=== PATIENT | male | born 1985 | race Caucasian/White ===

== ENCOUNTER 2017-03-24 14:54 | Emergency (ER) | payer OTHER ==
[~2017-03-24] VITALS: Ht 170.2 cm; Wt 74.0 kg
[2017-03-24] MEDS ORDERED: GABA-533 PO (15:38)
[2017-03-24] MEDS ORDERED: CARB200T PO (15:38)
[2017-03-24] MEDS ORDERED: POVIDONE-IODINE 10% 15 ML SOLUTION UD ONE (17:55)
[2017-03-24] MEDS ORDERED: POVIDONE-IODINE 10% 15 ML SOLUTION UD TP ONE (18:00)
[2017-03-24 18:03] VITALS: BP 137/91
== END 2017-03-24 18:22 | disposition home or self-care (01) ==
LOC: EMS 14:56
DX: L02.414 Cutaneous abscess of left upper limb (principal)
CPT/HCPCS: 99283

== ENCOUNTER 2019-11-11 20:46 | Inpatient (IN) | payer MEDICARE ==
[~2019-11-11] VITALS: Ht 180.3 cm; Wt 59.4 kg
[~2019-11-11 20:46] MED LIST: CARB200T PO; ESCI10TA PO; GABA-533 PO
[2019-11-11] MEDS ORDERED: HALOPERIDOL 5 MG TABLET PO PRN (23:15)
[2019-11-11] MEDS ORDERED: ZOLPIDEM TARTRATE 10 MG TABLET PO PRN (23:15)
[2019-11-11] MEDS ORDERED: LORazepam 2 MG TABLET PO PRN (23:15)
[2019-11-11] MEDS ORDERED: INFLUENZA VIRUS VACCINE QVS 2019-20 (3YR+)/PF 60 MCG/0.5 ML SYRINGE IM ONE (23:45)
[2019-11-11] MEDS ORDERED: PNEUMOCOCCAL VACCINE POLYVALENT 0.5 ML VIAL [PPSV23] IM ONE (23:45)
[2019-11-12 01:27] VITALS: BP 109/68
[2019-11-12 07:48] LABS: BASOPHILS % (AUTO) 1.5 % (0.0-2.0); EOSINOPHILS % (AUTO) 4.9 % (1.0-6.0); HEMATOCRIT 43.9 % (41-53); LYMPHOCYTES # (AUTO) 3.5 K/uL (1.0-4.8); LYMPHOCYTES % (AUTO) 48.7 % (22.0-44.0); MEAN CORPUSCULAR HGB CONC 34.2 G/dL (31.0-37.0); MEAN CORPUSCULAR VOLUME 91 fL (80-100); MONOCYTES # (AUTO) 0.7 K/uL (0.1-1.0); MONOCYTES % (AUTO) 10.4 % (2.0-9.0); NEUTROPHILS # (AUTO) 2.5 K/uL (1.8-7.7); NEUTROPHILS % (AUTO) 34.5 % (40.0-70.0); PLATELET COUNT (AUTO) 225 K/uL (150-450); RED BLOOD CELL COUNT(AUTO) 4.83 MIL/uL (4.50-5.90); RED CELL DISTRIBUTION WIDTH 12.9 % (11.5-14.5)
[2019-11-12 08:19] LABS: ALANINE AMINOTRANSFERASE 19 U/L (12-78); ALBUMIN 3.4 g/dL (3.4-5.0); ALKALINE PHOSPHATASE 75 U/L (46-116); ANION GAP 5 mmol/L (8-16); ASPARTATE AMINOTRANSFERASE 13 U/L (15-37); BILIRUBIN,TOTAL 0.3 mg/dL (0.1-1.0); CALCIUM, TOTAL 8.9 mg/dL (8.8-10.5); CARBON DIOXIDE 31 mmol/L (22-29); CHLORIDE 103 mmol/L (98-107); CHOL/HDL RATIO 1.7 (4.2-7.3); CHOLESTEROL 120 mg/dL (131-200); CREATININE 0.92 mg/dL (0.60-1.30); FREE T4 (FREE THYROXINE) 0.92 ng/dL (0.76-1.46); GLOMERULAR FILTR. RATE CALC > 60 mL/min (>60); GLUCOSE,RANDOM 94 mg/dL (70-110); HDL CHOLESTEROL 69 mg/dL (40-60); LDL CHOL (CALC.) 41 mg/dL (0-130); POTASSIUM 4.6 mmol/L (3.5-5.1); SODIUM SERUM 139 mmol/L (136-145); THYROID STIMULATING HORMONE 0.22 uIU/mL (0.36-3.74); TOTAL PROTEIN, SERUM 6.1 g/dL (6.4-8.2); TRIGLYCERIDES 50 mg/dL (15-150); UREA NITROGEN, BLOOD 18 mg/dL (7-18)
[2019-11-12 08:39] LABS: HEMOGLOBIN A1C 5.6 % (4.5-6.2)
[2019-11-12 08:44] VITALS: BP 127/89
[2019-11-12] MEDS ORDERED: DESONIDE 0.05% TP PRN (08:45)
[2019-11-12] MEDS: CarBAMazepine 200 MG TABLET PO SCH ×3 (09:10→17:20)
[2019-11-12 16:08] VITALS: BP 125/70
[2019-11-13 04:50] VITALS: BP 111/92
[2019-11-13 08:55] VITALS: BP 124/80
[2019-11-13] MEDS: CarBAMazepine 200 MG TABLET PO SCH ×3 (10:01→16:33)
[2019-11-13] MEDS: ESCITALOPRAM OXALATE 10 MG TABLET PO SCH (10:01)
[2019-11-13 16:34] VITALS: BP 123/73
[2019-11-14 00:19] VITALS: BP 127/69
[2019-11-14 08:12] VITALS: BP 127/88
[2019-11-14] MEDS: ESCITALOPRAM OXALATE 10 MG TABLET PO SCH (10:01)
[2019-11-14] MEDS: CarBAMazepine 200 MG TABLET PO SCH ×3 (10:01→16:39)
[2019-11-14] MEDS ORDERED: IBUPROFEN 600 MG TABLET PO PRN (15:15)
[2019-11-14 16:10] VITALS: BP 117/64
[2019-11-14] MEDS: QUEtiapine FUMARATE 25 MG TABLET PO SCH (20:33)
[2019-11-15 07:22] VITALS: BP 115/69
[2019-11-15 08:24] VITALS: BP 136/73
[2019-11-15] MEDS: ESCITALOPRAM OXALATE 10 MG TABLET PO SCH (08:51)
[2019-11-15] MEDS: CarBAMazepine 200 MG TABLET PO SCH ×3 (08:51→16:14)
[2019-11-15] MEDS: GABAPENTIN 400 MG CAPSULE PO SCH ×2 (12:36→16:14)
[2019-11-15 16:09] VITALS: BP 131/75
[2019-11-15] MEDS: NICOTINE 21 MG/24 HOUR PATCH TD SCH (16:15)
[2019-11-15] MEDS: QUEtiapine FUMARATE 25 MG TABLET PO SCH (20:25)
[2019-11-15] MEDS: CIPROFLOXACIN HCL 0.2%/HYDROCORT 1% 10 ML OTIC SUSPENSION AS SCH (22:09)
[2019-11-16 00:50] VITALS: BP 131/79
[2019-11-16 08:17] VITALS: BP 126/79
[2019-11-16] MEDS: ESCITALOPRAM OXALATE 10 MG TABLET PO SCH (08:27)
[2019-11-16] MEDS: NICOTINE 21 MG/24 HOUR PATCH TD SCH (08:27)
[2019-11-16] MEDS: GABAPENTIN 400 MG CAPSULE PO SCH ×3 (08:27→16:47)
[2019-11-16] MEDS: CarBAMazepine 200 MG TABLET PO SCH ×3 (08:27→16:46)
[2019-11-16] MEDS: CIPROFLOXACIN HCL 0.2%/HYDROCORT 1% 10 ML OTIC SUSPENSION AS SCH ×2 (08:28→16:47)
[2019-11-16] MEDS ORDERED: HYPROMELLOSE 0.5% 15 ML OPHTHALMIC SOLUTION OU PRN (12:45)
[2019-11-16 16:26] VITALS: BP 138/89
[2019-11-16] MEDS: QUEtiapine FUMARATE 25 MG TABLET PO SCH (20:11)
[2019-11-17 02:07] VITALS: BP 136/77
[2019-11-17 08:23] VITALS: BP 118/78
[2019-11-17] MEDS: ESCITALOPRAM OXALATE 10 MG TABLET PO SCH (09:06)
[2019-11-17] MEDS: CarBAMazepine 200 MG TABLET PO SCH ×3 (09:06→16:36)
[2019-11-17] MEDS: GABAPENTIN 400 MG CAPSULE PO SCH ×3 (09:06→16:36)
[2019-11-17] MEDS: CIPROFLOXACIN HCL 0.2%/HYDROCORT 1% 10 ML OTIC SUSPENSION AS SCH (09:07)
[2019-11-17] MEDS: NICOTINE 21 MG/24 HOUR PATCH TD SCH (09:08)
[2019-11-17] MEDS ORDERED: CIPOTIC AS (15:42)
[2019-11-17] MEDS ORDERED: GABA-533 PO (15:42)
[2019-11-17] MEDS ORDERED: QUET25TA PO (15:42)
[2019-11-17] MEDS ORDERED: ESCI10TA PO (15:42)
[2019-11-17 16:12] VITALS: BP 132/82
== END 2019-11-17 18:20 | disposition home or self-care (01) | DRG 885 ==
LOC: B2X 23:27
PROVIDERS: ADMIT Psychiatry & Neurology Psychiatry; ATTEND Psychiatry & Neurology Psychiatry
PROC: 3E0234Z Introduction of Serum, Toxoid and Vaccine into Muscle, Percutaneous Approach (ICD-10-PCS; principal; 2019-11-11)
PROC: 3E02340 Introduction of Influenza Vaccine into Muscle, Percutaneous Approach (ICD-10-PCS; 2019-11-11)
DX: F33.3 Major depressive disorder, recurrent, severe with psychotic symptoms (principal); R45.851 Suicidal ideations; R56.9 Unspecified convulsions; L40.9 Psoriasis, unspecified; I10 Essential (primary) hypertension; F41.9 Anxiety disorder, unspecified; F12.90 Cannabis use, unspecified, uncomplicated; Z59.0 Homelessness; Z72.0 Tobacco use; Z87.820 Personal history of traumatic brain injury; Z23 Encounter for immunization
CPT/HCPCS: 80074; 83036; 84439; 84443; 90686; 90732

== ENCOUNTER 2023-08-20 17:50 | Emergency (ER) | payer MEDICARE ==
[~2023-08-20] VITALS: Ht 180.3 cm; Wt 62.5 kg
[~2023-08-20 17:50] MED LIST changes: +CIPOTIC AS; +ESCI-8 PO; -ESCI10TA PO; -GABA-533 PO; +GABA-534 PO; +QUET25TA PO
[2023-08-20 18:15] LABS: BASOPHILS % (AUTO) 0.6 % (0.0-2.0); HEMATOCRIT 38.5 % (41-53); HEMOGLOBIN 12.3 g/dL (13.5-17.5); LYMPHOCYTES # (AUTO) 2.1 K/uL (1.0-4.8); LYMPHOCYTES % (AUTO) 21.1 % (22.0-44.0); MEAN CORPUSCULAR HEMOGLOBIN 25.8 pg (26.0-34.0); MEAN CORPUSCULAR VOLUME 81 fL (80-100); MONOCYTES # (AUTO) 0.7 K/uL (0.1-1.0); MONOCYTES % (AUTO) 6.6 % (2.0-9.0); NEUTROPHILS % (AUTO) 68.7 % (40.0-70.0); PLATELET COUNT (AUTO) 355 K/uL (150-450); RED BLOOD CELL COUNT(AUTO) 4.77 MIL/uL (4.50-5.90); RED CELL DISTRIBUTION WIDTH 15.7 % (11.5-14.5); WHITE BLOOD COUNT (AUTO) 10.1 K/uL (4.5-11.0)
[2023-08-20 18:20] LABS: ANION GAP 9 mmol/L (8-16); CALCIUM, TOTAL 9.4 mg/dL (8.8-10.5); CARBON DIOXIDE 25 mmol/L (22-29); CHLORIDE 105 mmol/L (98-107); CREATININE 1.03 mg/dL (0.60-1.30); GLOMERULAR FILTR. RATE CALC > 60 mL/min (>60); GLUCOSE,RANDOM 92 mg/dL (70-110); SODIUM SERUM 139 mmol/L (136-145); UREA NITROGEN, BLOOD 12 mg/dL (7-18)
[2023-08-20 18:26] LABS: ALANINE AMINOTRANSFERASE 23 U/L (12-78); ALBUMIN 3.4 g/dL (3.4-5.0); ALKALINE PHOSPHATASE 126 U/L (46-116); ASPARTATE AMINOTRANSFERASE 20 U/L (15-37); BILIRUBIN,TOTAL 0.1 mg/dL (0.1-1.0); TOTAL PROTEIN, SERUM 7.6 g/dL (6.4-8.2)
[2023-08-20 18:35] LABS: ACETAMINOPHEN < 2 mcg/mL (10-30)
[2023-08-20 18:46] LABS: ALCOHOL, BLOOD (SERUM) < 3 mg/dL (0-10)
[2023-08-20 18:53] LABS: SALICYLATE < 2.8 mg/dL (2.8-20.0)
[2023-08-20] MEDS ORDERED: SODIUM CHLORIDE 0.9% 1,000 ML IV ONE (19:30)
[2023-08-20 19:49] LABS: PH,URINE DRUG SCREEN 5.5 (5.0-8.0)
[2023-08-20 19:55] LABS: ALCOHOL, URINE DRUG SCREEN NEGATIVE (NEGATIVE); AMPHET/METH SCREEN,URINE POSITIVE (NEGATIVE); BARBITURATE SCREEN, URINE NEGATIVE (NEGATIVE); BENZODIAZEPINES SCREEN,URINE NEGATIVE (NEGATIVE); CANNABINOID SCREEN,URINE NEGATIVE (NEGATIVE); COCAINE SCREEN,URINE NEGATIVE (NEGATIVE); METHADONE SCREEN, URINE NEGATIVE (NEGATIVE); OPIATE SCREEN,URINE NEGATIVE (NEGATIVE); PHENCYCLIDINE SCREEN,URINE NEGATIVE (NEGATIVE)
[2023-08-20 22:07] VITALS: BP 159/114; PULSE 119; RESP 20; TEMP 98.8
[2023-08-20] MEDS ORDERED: NALO4SPR NASAL (22:08)
== END 2023-08-20 23:13 | disposition home or self-care (01) ==
LOC: EMS 17:51
DX: T40.2X1A Poisoning by other opioids, accidental (unintentional), initial encounter (principal); F15.10 Other stimulant abuse, uncomplicated; Z98.890 Other specified postprocedural states; Y92.89 Other specified places as the place of occurrence of the external cause
CPT/HCPCS: 99291; 70450; 96360; 80053; 85025; 36415; 72125; 93005; 80307; J7030; G0480; G0481